=== PATIENT | male | born 1955 | race Hispanic/Latino ===

== ENCOUNTER 2017-04-28 08:11 | Emergency (ER) | payer MEDICARE ==
[2017-04-28 08:23] VITALS: BP 215/106
[2017-04-28] MEDS ORDERED: ASPIRIN ONE (10:57)
[2017-04-28] MEDS ORDERED: LOVENOX SUB-Q ONE (10:57)
[2017-04-28 11:12] LABS: Bilirubin,Urine NEG (Negative); Blood,Urine LG (Negative); Color,Urine Red (Yellow); Mucus,Urine 2+ /HPF; Nitrite,Urine NEG (Negative); Urobilinogen,Urine < 2.0 mg/dL (<2.0)
[2017-04-28 11:13] LABS: RBC,Urine > 182.0 /HPF (0.0-6.0); WBC,Urine > 182.0 /HPF (0.0-6.0)
== END 2017-04-28 10:30 | disposition left against medical advice (07) ==
LOC: ED 08:11
DX: R31.9 Hematuria, unspecified (principal); Z53.21 Procedure and treatment not carried out due to patient leaving prior to being seen by health care provider
CPT/HCPCS: 81001; J1650

== ENCOUNTER 2017-09-23 09:05 | Outpatient (CLI) | payer MEDICARE ==
[2017-09-23] MEDS ORDERED: LEXISCAN IV ONE ×2 (11:36→11:40)
[2017-09-23 14:27] VITALS: BP 174/80
== END 2017-09-23 09:06 | disposition home or self-care (01) ==
LOC: ECHO 09:05
PROVIDERS: ATTEND Specialist
DX: I25.10 Atherosclerotic heart disease of native coronary artery without angina pectoris (principal); E78.4 Other hyperlipidemia; I10 Essential (primary) hypertension; D64.9 Anemia, unspecified; F17.219 Nicotine dependence, cigarettes, with unspecified nicotine-induced disorders
CPT/HCPCS: 78452; 93005; 93010; 93017; 93306; A9502; J2785

== ENCOUNTER 2018-09-15 18:01 | Inpatient (IN) | payer MEDICARE ==
--- NOTE | 2018-09-15 18:37 | Event Note ---
ED Screening Note ED Screening Note: pt presents with upper abd pain that began at 7:30 AM this morning has associated nausea states it is sharp, throbbing no emesis no diarrhea no CP no hematemesis, no hematochezia PMHx of Hep C, erosive PUD, GBS, HTN +smoker +drinker no drug use This initial assessment/diagnostic orders/clinical plan/treatment(s) is/are subject to change based on patients health status, clinical progression and re- assessment by fellow clinical providers in the ED. Further treatment and workup at subsequent clinical providers discretion. Patient/guardian urged not to elope from the ED as their condition may be serious if not clinically assessed and managed. Initial orders include: labs, EKG, XR chest/abd
--- NOTE | 2018-09-15 19:28 | XRay Report ---
Chest and abdominal series. 09/15/2018. HISTORY: Shortness of breath. Flank pain. Chest one view: Heart size is normal. The lungs are clear. Two-view abdomen: Gas is scattered throughout the abdomen in a nonobstructive fashion. Negative for f ree air or suspicious calcification. Signer Name: Enzo Georges MD Signed: 09/15/2018 7:23 PM Workstation Name: [id number]
[2018-09-15 19:30] LABS: Basophils # (Auto) 0.1 K/mm3 (0.0-0.1); Basophils % (Auto) 0.3 % (0.0-1.8); Eosinophils # (Auto) 0.1 K/mm3 (0.0-0.4); Eosinophils % (Auto) 0.4 % (0.0-4.3); Hematocrit 32.6 % (35.5-45.6); Hemoglobin 9.9 gm/dl (11.8-15.2); Lymphocytes # (Auto) 0.8 K/mm3 (1.2-5.4); Lymphocytes % (Auto) 4.5 % (13.4-35.0); Mean Corpuscular HGB Conc 30 % (32-34); Monocytes # (Auto) 1.1 K/mm3 (0.0-0.8); Monocytes % (Auto) 6.4 % (0.0-7.3); Platelet Count 190 K/mm3 (140-440); Red Blood Count 5.06 M/mm3 (3.65-5.03)
[2018-09-15 19:35] LABS: Mean Corpuscular Volume 64 fl (84-94); Red Cell Distribution Width 21.4 % (13.2-15.2)
[2018-09-15 19:49] LABS: Bacteria,Urine 4+ /HPF (Negative); Bilirubin,Urine NEG (Negative); Blood,Urine NEG (Negative); Color,Urine Yellow (Yellow); Mucus,Urine 3+ /HPF; Protein,Urine <15 mg/dL mg/dL (Negative); Sperm,Urine 2+ /HPF (NP); Urobilinogen,Urine < 2.0 mg/dL (<2.0)
[2018-09-15] MEDS ORDERED: ZOFRAN IV ONE (19:51)
[2018-09-15] MEDS ORDERED: BENADRYL IV ONE ×2 (19:51→20:51)
[2018-09-15] MEDS ORDERED: NACL 0.9% 1000 ML 1,000 ML IV ONE (19:52)
[2018-09-15] MEDS ORDERED: DECADRON IV ONE (19:52)
[2018-09-15] MEDS ORDERED: MORPHINE IV ONE (19:53)
[2018-09-15 19:54] LABS: Alanine Aminotransferase 23 units/L (7-56); Albumin 4.3 g/dL (3.9-5); BUN/Creatinine Ratio 20; Blood Urea Nitrogen 14 mg/dL (9-20); Calcium 9.4 mg/dL (8.4-10.2); Hemolysis Index 2
[2018-09-15] MEDS ORDERED: ROCEPHIN/NS 1 GM/50 ML 1 GM/50 ML BAG IV ONE (21:03)
--- NOTE | 2018-09-15 22:41 | Cat Scan Report ---
CT abdomen pelvis w con INDICATION: abdominal pain. TECHNIQUE: All CT scans at this location are performed using CT dose reduction for ALARA by means of automated e xposure control. COMPARISON: None available. FINDINGS: No acute disease in the lung bases. Liver, gallbladder, spleen, pancreas, kidneys and adrenals are ne gative. Abdominal aorta is atherosclerotic but normal in size. There are a few small periportal node s but no significant adenopathy. Pelvis The appendix is abnormally distended and edematous, with slight surrounding inflammatory change. Tiny appendicolith is demonstrated in the mid appendix. Urinary bladder and distal ureters are negative. No free fluid. No skeletal lesions. IMPRESSION: 1. Findings suggest early/mild acute appendicitis. Signer Name: Beck Valdez MD Signed: 09/15/2018 10:37 PM Workstation Name: [id number]
[2018-09-15] MEDS ORDERED: ZOSYN/NS 3.375GM/50ML 3.375 GM/50 ML BAG IV ONE (23:13)
--- NOTE | 2018-09-15 23:17 | Emergency Department Report ---
ED Abdominal Pain HPI - General Chief Complaint: Abdominal Pain Stated Complaint: ABDOMINAL PAIN Time Seen by Provider: 09/15/18 18:34 Source: patient Mode of arrival: Ambulatory Limitations: No Limitations - History of Present Illness Initial Comments: Patient is a 62-year-old white male with a history of chronic back pain, hypertension, COPD, and Guillain-Soto syndrome who presents to the ED with complaint of acute onset persistent severe right lower quadrant abdominal pain with nausea for the last 12 hours. Patient states that the pain has worsened in the last 4 hours especially with movement. Patient states that the pain radiates to the right flank and the suprapubic area. Patient denies fever, chills, vomiting, diarrhea, constipation, dysuria, urinary frequency and urgency, testicular pain,hematuria or fever, chills, traumatic injury or heavy lifting. MD Complaint: abdominal pain, other (RLQ Pain) -: Sudden, hour(s) (12) Location: RLQ Radiation: RLQ, suprapubic, R flank Migration to: RLQ Severity: severe Severity scale (0 -10): 6 Quality: cramping, aching, sharp Consistency: constant Improves With: nothing Worsens With: movement Associated Symptoms: nausea. denies: vomiting, diarrhea, fever, chills, constipation, dysuria, hematemesis, hematochezia, melena, hematuria, anorexia, syncope - Related Data Home Medications Medication Instructions Recorded Confirmed Last Taken Pantoprazole [Protonix] 40 mg PO DAILY 11/10/13 01/14/17 01/13/17 Verapamil HCl 240 mg PO DAILY 11/10/13 01/14/17 01/14/17 06:30 Mesalamine [Pentasa] 1,000 mg PO TID 01/09/17 01/14/17 01/13/17 Allergies Allergy/AdvReac Type Severity Reaction Status Date / Time iodine AdvReac Rash Verified 08/03/13 08:45 tramadol AdvReac Rash Verified 08/03/13 08:45 ED Review of Systems ROS: Stated complaint: ABDOMINAL PAIN Other details as noted in HPI Constitutional: denies: chills, fever Eyes: denies: eye pain, eye discharge, vision change ENT: denies: ear pain, throat pain Respiratory: denies: cough, shortness of breath, wheezing Cardiovascular: denies: chest pain, palpitations Endocrine: no symptoms reported Gastrointestinal: abdominal pain, nausea. denies: diarrhea, constipation, melena, hematochezia Genitourinary: denies: urgency, dysuria Musculoskeletal: denies: back pain, joint swelling, arthralgia Skin: denies: rash, lesions Neurological: denies: headache, weakness, paresthesias Psychiatric: denies: anxiety, depression Hematological/Lymphatic: denies: easy bleeding, easy bruising ED Past Medical Hx - Past Medical History Previous Medical History?: Yes Hx Hypertension: Yes (2005) Hx Congestive Heart Failure: No Hx Diabetes: No Hx GERD: Yes Hx Liver Disease: Yes (h/o hepatitis C) Hx Renal Disease: No (BPH, urinary retention) Hx Arthritis: Yes Hx Asthma: No Hx COPD: Yes (NO [place]; used inhaler last week) Hx HIV: No Additional medical history: Hepatitis C; Guillian [place] Syndrome - Surgical History Past Surgical History?: Yes Additional Surgical History: Bleeding Ulcer 2011 - Social History Smoking Status: Current Every Day Smoker Substance Use Type: Alcohol - Medications Home Medications: Home Medications Medication Instructions Recorded Confirmed Last Taken Type Pantoprazole [Protonix] 40 mg PO DAILY 11/10/13 01/14/17 01/13/17 History Verapamil HCl 240 mg PO DAILY 11/10/13 01/14/17 01/14/17 06:30 History Mesalamine [Pentasa] 1,000 mg PO TID 01/09/17 01/14/17 01/13/17 History ED Physical Exam - General Limitations: No Limitations General appearance: alert, in no apparent distress - Head Head exam: Present: atraumatic, normocephalic, normal inspection - Eye Eye exam: Present: normal appearance, PERRL, EOMI Pupils: Present: normal accommodation - ENT ENT exam: Present: normal exam, normal orophraynx, mucous membranes moist, TM's normal bilaterally, normal external ear exam - Neck Neck exam: Present: normal inspection, full ROM. Absent: tenderness - Respiratory Respiratory exam: Present: normal lung sounds bilaterally. Absent: respiratory distress, wheezes, rales, rhonchi, chest wall tenderness, accessory muscle use, decreased breath sounds, prolonged expiratory - Cardiovascular Cardiovascular Exam: Present: regular rate, normal rhythm, normal heart sounds. Absent: systolic murmur, diastolic murmur, rubs, gallop - GI/Abdominal GI/Abdominal exam: Present: soft, tenderness (RLQ), guarding, rebound (RLQ), normal bowel sounds. Absent: distended, hyperactive bowel sounds, hypoactive bowel sounds, mass, bruit, pulsatile mass - Rectal Rectal exam: Present: deferred - Extremities Exam Extremities exam: Present: normal inspection, full ROM, normal capillary refill - Back Exam Back exam: Present: normal inspection, full ROM. Absent: tenderness, CVA tenderness (L), muscle spasm, vertebral tenderness - Neurological Exam Neurological exam: Present: alert, oriented X3, CN II-XII intact, reflexes normal - Psychiatric Psychiatric exam: Present: normal affect, normal mood - Skin Skin exam: Present: warm, dry, intact, normal color. Absent: rash ED Course Vital Signs 09/15/18 09/15/18 09/15/18 18:34 20:25 23:04 Temperature 98.2 F Pulse Rate 96 H 84 90 Respiratory 18 18 16 Rate Blood Pressure 187/80 Blood Pressure 200/89 178/84 [Left] O2 Sat by Pulse 98 96 95 Oximetry - Reevaluation(s) Reevaluation #1: 09/15/18 23:17 Patient is alert and oriented 3 and is not in any distress but then and is hypertensive in triage. Lab test results were reviewed and showed acute leukocytoses of 16,800, and urinalysis also showed the acute urinary tract infection. The patient was treated for pain in the ED as well as nausea. Patient also received Rocephin 1 g IV for acute urinary tract infection. A bdomen and pelvis CT scan with contrast shows an abnormally distended and edematous appendix with slight surrounding inflammatory change. There is also a tiny appendicolith in the mid appendix. There are narrowed bladder and distal ureters are unremarkable with no free fluid. These findings are suggestive of early to mild acute appendicitis. I discussed these findings with the general surgeon supervisor steel division Dr. Funez, who also reviewed the imaging department and lab test results and advised that the patient was started on antibiotics and admitted to the hospitalist physician supervisor steel division admit the patient and Dr. Funez shall schedule the patient for surgery in the morning. He also advises that the patient be kept nothing by mouth. I paged and discussed the patient's findings and the plan of care with the hospitalist physician supervisor steel division Dr. Mancera who admitted the patient to the Hospital 09/15/18 23:31 ED Medical Decision Making - Lab Data Result diagrams: 09/15/18 19:15 09/15/18 19:15 - EKG Data EKG shows normal: sinus rhythm Rate: normal - EKG Data Interpretation: normal EKG - Radiology Data Radiology results: report reviewed, image reviewed [facility] [address] [place] [address] Cat Scan Report Signed Patient: JIMMIE FARRIS MR#: [id number] : 1955 Acct:[id number] Age/Sex: 62 / M ADM Date: 09/15/18 Loc: ED Attending Dr: Ordering Physician: DIVINA JIMENEZ Date of Service: 09/15/18 Procedure(s): CT abdomen pelvis w con Accession Number(s): [id number] cc: DIVINA JIMENEZ CT abdomen pelvis w con INDICATION: abdominal pain. TECHNIQUE: All CT scans at this location are performed using CT dose reduction for ALARA by means of automated exposure control. COMPARISON: None available. FINDINGS: No acute disease in the lung bases. Liver, gallbladder, spleen, pancreas, kidneys and adrenals are negative. Abdominal aorta is atherosclerotic but normal in size. There are a few small periportal nodes but no significant adenopathy. Pelvis The appendix is abnormally distended and edematous, with slight surrounding inflammatory change. Tiny appendicolith is demonstrated in the mid appendix. Urinary bladder and distal ureters are negative. No free fluid. No skeletal lesions. IMPRESSION: 1. Findings suggest early/mild acute appendicitis. Signer Name: Beck Valdez MD Signed: 09/15/2018 10:37 PM Workstation Name: [id number] Transcribed By: TM Dictated By: Beck Valdez MD Electronically Authenticated By: Beck Valdez MD Signed Date/Time: 09/15/18 2236 - Medical Decision Making Patient is alert and oriented 3 and is not in any distress but then and is hypertensive in triage. Lab test results were reviewed and showed acute leukocytoses of 16,800, and urinalysis also showed the acute urinary tract infection. The patient was treated for pain in the ED as well as nausea. Patient also received Rocephin 1 g IV for acute urinary tract infection. Abdomen and pelvis CT scan with contrast shows an abnormally distended and edematous appendix with slight surrounding inflammatory change. There is also a tiny appendicolith in the mid appendix. There are narrowed bladder and distal ureters are unremarkable with no free fluid. These findings are suggestive of early to mild acute appendicitis. I discussed these findings with the general surgeon supervisor steel division Dr. Funez, who also reviewed the imaging department and lab test results and advised that the patient was started on antibiotics and admitted to the hospitalist physician supervisor steel division admit the patient and Dr. Funez shall schedule the patient for surgery in the morning. He also advises that the patient be kept nothing by mouth. I paged and discussed the patient's findings and the plan of care with the hospitalist physician supervisor steel division Dr. Mancera who admitted the patient to the Hospital - Differential Diagnosis acuet appendicitis, acute UTI, Kidney stones, Gallstones; Pancreatitis Critical care attestation.: If time is entered above; I have spent that time in minutes in the direct care of this critically ill patient, excluding procedure time. ED Disposition Clinical Impression: Acute abdominal pain in right lower quadrant, Acute urinary tract infection Acute appendicitis Qualifiers: Acute appendicitis type: unspecified acute appendicitis type Qualified Code(s): K35.80 - Unspecified acute appendicitis Disposition: -09 OP ADMIT IP TO THIS HOSP Is pt being admited?: Yes Does the pt Need Aspirin: No Condition: Stable Instructions: Abdominal Pain (ED) Referrals: JONATAN TEJEDA MD [Primary Care Provider] - 3-5 Days Time of Disposition: 23:22 Print Language: UPPER SORBIAN
[2018-09-16] MEDS ORDERED: ZOFRAN IV PRN ×2 (00:58→11:36)
[2018-09-16] MEDS ORDERED: MORPHINE IV PRN (00:59)
[2018-09-16] MEDS ORDERED: NACL 0.9% 1000 ML 1,000 ML IV SCH (01:00)
[2018-09-16] MEDS ORDERED: TYLENOL PR PRN (01:04)
[2018-09-16] MEDS: APRESOLINE IV PRN ×2 (03:21→09:47)
--- NOTE | 2018-09-16 05:00 | History and Physical Report ---
CHIEF COMPLAINT: Abdominal pain. HISTORY OF PRESENT ILLNESS: The patient is a 62-year-old male who presented with right lower quadrant abdominal pain, going on for some 12-24 hours prior to presentation and associated with nausea but no vomiting. The patient's pain became progressively worse 4 hours prior to presentation. The patient said that the pain was worse with movement and pain radiates to the right flank area as well as the suprapubic area on the right side. There was a history of chills, but no history of fever and there was no history of diarrhea or urinary frequency or burning micturition. The patient also denied history of any testicular pain or hematuria, and denied history of trauma. PAST MEDICAL HISTORY: Pertinent for hypertension, gastroesophageal reflux disease, hepatitis C infection, arthritis, COPD and Guillain-Sayre syndrome. PAST SURGICAL HISTORY: Pertinent for bleeding ulcers in 2011. FAMILY HISTORY: Reviewed and noncontributory. SOCIAL HISTORY: The patient drinks alcohol, smokes cigarettes, and does not use illicit drugs. MEDICATIONS: The patient is on pantoprazole or Protonix 40 mg by mouth daily, verapamil 240 mg by mouth daily, mesalamine 1000 mg by mouth 3 times daily. ALLERGIES: THE PATIENT IS ALLERGIC TO IODINE AND TRAMADOL. REVIEW OF SYSTEMS: CONSTITUTIONAL: There is no fever, no chills, no diaphoresis. HEENT: There is no headache or sore throat. CARDIOVASCULAR SYSTEM: There is no chest pain or orthopnea. RESPIRATORY SYSTEM: There is no shortness of breath or cough. GASTROINTESTINAL SYSTEM: Right lower quadrant abdominal pain present. Nausea present. No vomiting, no diarrhea, no constipation. NEUROLOGICAL SYSTEM: There is no numbness, no dizziness, no altered mental status. MUSCULOSKELETAL SYSTEM: There is no joint pain or swelling. DERMATOLOGICAL SYSTEM: There is no skin rash or itching. GENITOURINARY SYSTEM: There is no dysuria, hematuria, or flank pain. Rest of system review is normal. PHYSICAL EXAMINATION: GENERAL: At the time of exam, the patient was found to be alert and oriented x 3 and in mild distress due to right lower quadrant abdominal pain. VITAL SIGNS: At the initial time of presentation showed temperature of 98.2 degrees Fahrenheit, pulse of 96, respirations 18, blood pressure 187/80, O2 sat of 98% on room air. HEENT: Showed pupils to be equal, round, reactive to light and accommodating. Extraocular muscles are intact. NECK: Supple with no JVD or carotid bruit. CARDIOVASCULAR SYSTEM: Shows normal first and second heart sounds with no gallops or murmurs. RESPIRATORY SYSTEM: Showed good air entry on both sides of the lungs with no abnormal breath sounds. GASTROINTESTINAL SYSTEM: Showed abdomen to be full, soft with tenderness in the right lower quadrant area. There is also rebound tenderness, but no rigidity and no guarding was elicited. Bowel sounds are normal. No organomegaly was elicited. NEUROLOGIC: Showed no focal deficits. MUSCULOSKELETAL SYSTEM: Showed no joint swelling or tenderness. DERMATOLOGICAL SYSTEM: Showed no skin rash. GENITOURINARY SYSTEM: Showed no costovertebral angle tenderness. PERTINENT LABORATORY AND IMAGING STUDIES: The patient had a CT of the abdomen and pelvis done which shows early/mild acute appendicitis. The patient also had acute abdominal series done, which shows no free air or suspicious calcification or obstruction. The patient's lab results: CBC shows elevated white count of 16,800 with low hemoglobin of 9.9 and low hematocrit level of 32.6 with low MCV of 64 and normal platelet count. CBC differential showed elevated segmented neutrophil count of 88.4% with chemistries showing low sodium level of 136. The patient's cardiac enzymes were unremarkable. Urinalysis shows elevated urine wbc of 10 with trace urine leukocyte esterase and negative urine nitrites with 4+ bacteria. DIAGNOSES: 1. Acute appendicitis. 2. Urinary tract infection. 3. Hypertension. 4. Anemia. PLAN OF CARE: 1. The patient will be admitted to medical/surgical qureshi. 2. The patient will remain n.p.o. until seen by the surgeon. 3. The patient will continue surgical consult with Dr. Funez, requested by the Emergency Room physician. 4. The patient will be on IV Zosyn 4.5 grams IV q.8 hours. 5. The patient will be on IV morphine 2 mg every 3 hours as needed for pain and IV Zofran 4 mg every 8 hours for nausea and vomiting. 6. The patient will be on IV Protonix 40 mg daily for ulcer prevention since the patient has bleeding peptic ulcer. 7. The patient will be on Tylenol 650 mg rectally every 4 hours for fever and headache and will be on IV normal saline running at 75 mL an hour. 8. The patient will be on IV hydralazine 10 mg every 4 hours as needed for blood pressure of 160/90 or more. [facility]# [id number] OCN/NTS MTDD
[2018-09-16] MEDS ORDERED: ZOSYN/NS 3.375GM/50ML 3.375 GM/50 ML BAG IV SCH (06:00)
[2018-09-16] MEDS ORDERED: ZOSYN/NS 4.5GM/100ML 4.5 GM/100 ML VIAL IV SCH (06:00)
--- NOTE | 2018-09-16 08:39 | Consultation ---
History of Present Illness Consult date: 09/16/18 Reason for consult: abdominal pain Requesting physician: CARLITOS CORRALES Chief complaint: RLQ pain - History of present illness History of present illness: 62yo M multiple medical problems presented to the emergency department after developing sudden onset of abdominal pain at 7:30 yesterday morning. He was driving home from [place] at the time. Reports progressively increasing pain. Had sweats. No fevers or chills. Positive nausea. No vomiting. Patient is hungry. Has never had any pain like this before. Maximal pain is in the right lower quadrant. CT scan is suggestive of appendicitis. General surgery was consult for this reason. Past History Past Medical History: CAD, COPD, hepatitis (C - pt reports it is cured), hypertension, other (h/o guillain-barre syndrome - still has residual pain in lower extremities; h/o PUD). denies: acute [place], heart failure, stroke Past Surgical History: denies: No surgical history Social history: , smoking (1/2-1ppd), alcohol abuse (4 drinks/day - no withdrawal sx's) Family history: no significant family history Medications and Allergies Allergies Allergy/AdvReac Type Severity Reaction Status Date / Time iodine AdvReac Rash Verified 08/03/13 08:45 tramadol AdvReac Rash Verified 08/03/13 08:45 Home Medications Medication Instructions Recorded Confirmed Last Taken Type Pantoprazole [Protonix] 40 mg PO DAILY 11/10/13 01/14/17 01/13/17 History Verapamil HCl 240 mg PO DAILY 11/10/13 01/14/17 01/14/17 06:30 History Mesalamine [Pentasa] 1,000 mg PO TID 01/09/17 01/14/17 01/13/17 History Active Meds: Active Medications Acetaminophen (Tylenol) 650 mg NC Q4H PRN PRN Reason: Pain, Mild (1-3) Hydralazine HCl (Apresoline) 10 mg IV Q4HR PRN PRN Reason: Blood Pressure Last Admin: 09/16/18 03:21 Dose: 10 mg Documented by: Sodium Chloride (Nacl 0.9% 1000 Ml) 1,000 mls @ 75 mls/hr IV DIRECT ZACH Last Admin: 09/16/18 03:21 Dose: 75 mls/hr Documented by: Piperacillin Sod/Tazobactam Sod (Zosyn/Ns 4.5gm/100ml) 4.5 gm in 100 mls @ 200 mls/hr IV Q8HR [facility]; Protocol Last Admin: 09/16/18 06:46 Dose: 200 mls/hr Documented by: Miscellaneous Medication (Mesalamine [Pentasa]) 1,000 mg PO TID [facility] Morphine Sulfate (Morphine) 2 mg IV Q3H PRN PRN Reason: Pain, Moderate (4-6) Ondansetron HCl (Zofran) 4 mg IV Q8H PRN PRN Reason: Nausea And Vomiting Pantoprazole Sodium (Protonix) 40 mg IV DAILY [facility] Pantoprazole Sodium (Protonix) 40 mg PO DAILY [facility] Verapamil HCl (Calan) 240 mg PO DAILY [facility] Review of Systems - Constitutional sweats, chronic pain (in lower extremities), no fever, no chills - Cardiovascular no chest pain, no shortness of breath - Respiratory no cough - Gastrointestinal abdominal pain, nausea, no vomiting, no change in bowel habits, no loss of appetite, no dyspepsia/bloating - Genitourinary no dysuria - Muskuloskeletal shooting leg pain, leg numbness/tingling, no low back pain Exam Vital Signs Temp Pulse Resp BP Pulse Ox 98.2 F 96 H 18 187/80 98 09/15/18 18:34 09/15/18 18:34 09/15/18 18:34 09/15/18 18:34 09/15/18 18:34 - General physical appearance Positive: no distress, no pain, other (overweight) - Eyes Positive: normal occular movement - Respiratory Positive: normal expansion, normal respiratory effort, clear to auscultation - Cardiovascular Rhythm: regular - Abdomen Abdomen: Present: soft, tender (in RLQ. small amount in LLQ. No referred pain. No pelvic shake tenderness), bowel sounds hypoactive. Absent: masses, guarding, rigid, wound, surgical scars - Integumentary no rash, no growths, no abnormal pigmentation - Neurologic Neurologic: alert and oriented to time, place and person - Psychiatric Psychiatric: appropriate mood/affect, intact judgment & insight, cooperative Results - Labs 09/15/18 19:15 09/15/18 19:15 Abnormal lab results 09/15/18 09/15/18 09/15/18 Range/Units 18:52 19:15 19:15 WBC 16.8 H (4.5-11.0) K/mm3 RBC 5.06 H (3.65-5.03) M/mm3 Hgb 9.9 L (11.8-15.2) gm/dl Hct 32.6 L (35.5-45.6) % MCV 64 L (84-94) fl MCH 20 L (28-32) pg MCHC 30 L (32-34) % RDW 21.4 H (13.2-15.2) % Lymph % (Auto) 4.5 L (13.4-35.0) % Lymph # 0.8 L (1.2-5.4) K/mm3 Cocke # 1.1 H (0.0-0.8) K/mm3 Seg Neutrophils % 88.4 H (40.0-70.0) % Seg Neutrophils # 14.9 H (1.8-7.7) K/mm3 Sodium 136 L (137-145) mmol/L Creatinine 0.7 L (0.8-1.5) mg/dL Glucose 122 H (75-100) mg/dL Urine WBC (Auto) 10.0 H (0.0-6.0) /HPF Diabetes panel 09/15/18 Range/Units 19:15 Sodium 136 L (137-145) mmol/L Potassium 4.5 (3.6-5.0) mmol/L Chloride 100.0 (98-107) mmol/L Carbon Dioxide 23 (22-30) mmol/L BUN 14 (9-20) mg/dL Creatinine 0.7 L (0.8-1.5) mg/dL Glucose 122 H (75-100) mg/dL Calcium 9.4 (8.4-10.2) mg/dL AST 20 (5-40) units/L ALT 23 (7-56) units/L Alkaline Phosphatase 76 (35-129) units/L Total Protein 7.6 (6.3-8.2) g/dL Albumin 4.3 (3.9-5) g/dL Calcium panel 09/15/18 Range/Units 19:15 Calcium 9.4 (8.4-10.2) mg/dL Albumin 4.3 (3.9-5) g/dL Pituitary panel 09/15/18 Range/Units 19:15 Sodium 136 L (137-145) mmol/L Potassium 4.5 (3.6-5.0) mmol/L Chloride 100.0 (98-107) mmol/L Carbon Dioxide 23 (22-30) mmol/L BUN 14 (9-20) mg/dL Creatinine 0.7 L (0.8-1.5) mg/dL Glucose 122 H (75-100) mg/dL Calcium 9.4 (8.4-10.2) mg/dL Adrenal panel 09/15/18 Range/Units 19:15 Sodium 136 L (137-145) mmol/L Potassium 4.5 (3.6-5.0) mmol/L Chloride 100.0 (98-107) mmol/L Carbon Dioxide 23 (22-30) mmol/L BUN 14 (9-20) mg/dL Creatinine 0.7 L (0.8-1.5) mg/dL Glucose 122 H (75-100) mg/dL Calcium 9.4 (8.4-10.2) mg/dL Total Bilirubin 0.70 (0.1-1.2) mg/dL AST 20 (5-40) units/L ALT 23 (7-56) units/L Alkaline Phosphatase 76 (35-129) units/L Total Protein 7.6 (6.3-8.2) g/dL Albumin 4.3 (3.9-5) g/dL - Imaging CT scan - abdomen: report reviewed, image reviewed CT scan - pelvis: report reviewed, image reviewed Assessment and Plan - Patient Problems (1) Acute appendicitis Current Visit: Yes Status: Acute Qualifiers: Acute appendicitis type: with localized peritonitis Qualified Code(s): K35.80 - Unspecified acute appendicitis Plan to address problem: Pt stable. Patient assessed to have appendicitis based on history, physical, radiographic evaluation. Options given for surgery versus medical therapy. Pros and cons discussed for each one. Patient elected to have surgery. Procedure, risks, benefits were discussed. All questions were answered. Consent was obtained. Either myself or Dr. Kan will perform surgery. Consent is been obtained for both. We will proceed to OR today. Patient is currently on the add-on schedule Please call with questions Time=30min
[2018-09-16] MEDS ORDERED: PROTONIX PO SCH (10:00)
[2018-09-16] MEDS: PROTONIX IV SCH ×2 (10:50→11:55)
[2018-09-16] MEDS ORDERED: MARCAINE 0.5% INFILTRATI ONE ×2 (11:24→12:37)
[2018-09-16] MEDS ORDERED: XYLOCAINE 1% 20 mL ONE (11:24)
--- NOTE | 2018-09-16 11:33 | Anesthesia Consultation ---
Anesthesia Consult and Med Hx Date of service: 09/16/18 - Airway Anesthetic Teeth Evaluation: Edentulous ROM Head & Neck: Adequate Mental/Hyoid Distance: Adequate Mallampati Class: Class II Intubation Access Assessment: Probably Good - Pre-Operative Health Status ASA Pre-Surgery Classification: ASA3, Emergency Proposed Anesthetic Plan: General - Pulmonary Hx Smoking: Yes (current) Hx Asthma: No COPD: Yes Hx Pneumonia: No Hx Sleep Apnea: No (high score for MANDY) - Cardiovascular System Hx Hypertension: Yes Hx Coronary Artery Disease: Yes (Mild blockage; NST this year) Hx Heart Attack/AMI: No Hx Angina: No Hx Percutaneous Transluminal Coronary Angioplasty (PTCA): No Hx Pacemaker: No Hx Internal Defibrillator: No Hx Valvular Heart Disease: No Hx Peripheral Vascular Disease: No - Central Nervous System Hx Neuromuscular Disorder: Yes (arthritis - uses a walker) Hx Seizures: No CVA: No Hx Back Pain: Yes Hx Psychiatric Problems: No - Gastrointestinal Hx Ulcer: Yes (peptic ulcer) Hx Gastroesophageal Reflux Disease: Yes (controlled) - Endocrine Hx Renal Disease: No Hx End Stage Renal Disease: No Hx Cirrhosis: No Hx Liver Disease: Yes (HEP C in the past) Hx Hyperthyroidism: No - Hematic Hx Anemia: Yes - Other Systems Hx Alcohol Use: Yes Hx Cancer: No - Additional Comments 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
--- NOTE | 2018-09-16 11:34 | Anesthesia Day of Surgery ---
Anesthesia Day of Surgery - Day of Surgery Patient Examined: Yes Patient H&P Reviewed: Yes Patient is NPO: Yes
[2018-09-16] MEDS ORDERED: SUBLIMAZE IV PRN (11:36)
[2018-09-16] MEDS ORDERED: LACTATED RINGERS 1,000 ML IV SCH (11:50)
[2018-09-16] MEDS ORDERED: LACTATED RINGERS 1,000 ML ONE (11:53)
[2018-09-16] MEDS ORDERED: CALAN PO SCH (12:00)
[2018-09-16] MEDS ORDERED: DIPRIVAN 10 MG/ML IV ONE (12:02)
[2018-09-16] MEDS ORDERED: DILAUDID ONE (12:02)
[2018-09-16] MEDS ORDERED: QUELICIN ONE (12:03)
[2018-09-16] MEDS ORDERED: XYLOCAINE MPF 2% ONE (12:03)
[2018-09-16] MEDS ORDERED: ZEMURON IV ONE (12:03)
[2018-09-16] MEDS ORDERED: XYLOCAINE 1% 20 mL INFILTRATI ONE (12:37)
[2018-09-16] MEDS ORDERED: NACL 0.9% IR ONE (12:37)
[2018-09-16] MEDS ORDERED: NORCO 5/325 PO PRN (13:04)
--- NOTE | 2018-09-16 13:04 | Post Operative Note ---
Date of procedure: 09/16/18 Pre-op diagnosis: acute appendicitis Post-op diagnosis: same Findings: inflamed appendix Procedure: laparoscopic appendectomy Anesthesia: JOSÉ LUISA, local Surgeon: REJI SHERMAN Estimated blood loss: minimal Pathology: list (appendix) Specimen disposition: to lab Condition: stable Disposition: PACU
[2018-09-16] MEDS ORDERED: ROBINUL ONE (13:05)
[2018-09-16] MEDS ORDERED: BLOXIVERZ ONE (13:05)
[2018-09-16] MEDS ORDERED: ZOFRAN ONE (13:07)
[2018-09-16] MEDS ORDERED: TORADOL ONE (13:08)
[2018-09-16] MEDS ORDERED: PENTASA PO SCH (14:00)
[2018-09-16] MEDS ORDERED: MESALAMINE 1000 MG PO SCH (14:00)
--- NOTE | 2018-09-16 15:06 | Discharge Summary ---
Providers - Providers Date of Admission: 09/16/18 00:53 Attending physician: MICHELINE PARK MD 09/15/18 23:35 Consult to Physician [CONS] Routine Comment: GLOBAL SALES DIRECTOR/PA spoke with Dr. Funez @ [phone] Consulting Provider: AKIRA FUNEZ Physician Instructions: Admit to Hospitalist, keep NPO, STAT ABX IV Reason For Exam: acuet appendicitis Primary care physician: JONATAN TEJEDA Hospitalization Reason for admission: abodominal pain Condition: Stable Hospital course: 62 yo M multiple medical problems presented to the emergency department after d eveloping sudden onset of abdominal pain at 7:30 yesterday morning. He was driving home from [place] at the time. Reports progressively increasing pain. Had sweats. No fevers or chills. Positive nausea. No vomiting. Patient is hungry. Has never had any pain like this before. Maximal pain is in the right lower quadrant. CT scan is suggestive of appendicitis. Patient was noted to have acute leukocytoses of 16,800, and urinalysis also showed the acute urinary tract infection. The patient was treated for pain in the ED as well as nausea. Patient also received Rocephin 1 g IV for acute urinary tract infection. Abdomen and pelvis CT scan with contrast shows an abnormally distended and edematous appendix with slight surrounding inflammatory change. There is also a tiny appendicolith in the mid appendix. There are narrowed bladder and distal ureters are unremarkable with no free fluid. These findings are suggestive of early to mild acute appendicitis. Diagnosis 1. Acute Appendicitis 2. SIRS with organ dysfunction 3. Hepatitis C 4. HTN 5. Acute Cystitis 6. Stable Heart Failure presumed Systolic 7. Alcohol Use Disorder 8. COPD 9. ANEMIA Disposition: DC-01 TO HOME OR SELFCARE Time spent for discharge: 35 mins Core Measure Documentation - Palliative Care Palliative Care/ Comfort Measures: Not Applicable - Core Measures Any of the following diagnoses?: none Exam - Constitutional Vitals: Temp Pulse Resp BP Pulse Ox 97.6 F 76 16 123/55 97 09/16/18 13:45 09/16/18 13:45 09/16/18 13:45 09/16/18 13:45 09/16/18 13:45 General appearance: Present: no acute distress - EENT Eyes: Present: PERRL ENT: hearing intact, clear oral mucosa - Neck Neck: Present: supple, normal ROM - Respiratory Respiratory effort: normal Respiratory: bilateral: CTA - Cardiovascular Rhythm: regular Heart Sounds: Present: S1 & S2. Absent: systolic murmur - Extremities Extremities: no ischemia, pulses intact, pulses symmetrical, No edema, normal temperature, normal color, Full ROM Peripheral Pulses: within normal limits - Abdominal General gastrointestinal: Present: soft, non-tender, non-distended, normal bowel sounds - Integumentary Integumentary: Present: clear, warm, dry - Musculoskeletal Musculoskeletal: strength equal bilaterally - Psychiatric Psychiatric: appropriate mood/affect, intact judgment & insight, cooperative - Neurologic Neurologic: CNII-XII intact, moves all extremities - Allied Health Allied health notes reviewed: nursing Plan Activity: advance as tolerated, fall precautions Diet: low fat Special Instructions: record daily weights, record daily BP diary Follow up with: JONATAN TEJEDA MD [Primary Care Provider] - 3-5 Days REJI SHERMAN DO [Staff Physician] - 7 Days Prescriptions: HYDROcodone/APAP 5-325 [[place] 5-325 mg TAB] 1 each PO Q6H PRN #12 tablet PRN Reason: Pain, Moderate (4-6)
[2018-09-16 15:35] VITALS: BP 127/56
--- NOTE | 2018-09-17 20:21 | Operative Report ---
PREOPERATIVE DIAGNOSIS: Acute appendicitis. POSTOPERATIVE DIAGNOSIS: Acute appendicitis. FINDINGS: Inflamed appendix. PROCEDURE: Laparoscopic appendectomy. ANESTHESIA: General endotracheal anesthesia, local. SURGEON: Lou Kan DO ESTIMATED BLOOD LOSS: Minimal. PATHOLOGY: Appendix DISPOSITION: To lab. CONDITION AND DISPOSITION: The patient is stable to PACU. HISTORY OF PRESENT ILLNESS AND INDICATION: The patient is a 62-year-old male who presented to the hospital with complaints of abdominal pain. He was found to have an elevated white blood cell count and acute appendicitis on CT scan. This was consistent with his physical exam findings of right lower quadrant pain. Appendectomy was recommended. All risks, benefits and alternatives to surgery were discussed with the patient. All questions answered. Consent was obtained. PROCEDURE IN DETAIL: The patient was identified in the preoperative area, taken back to the operating room and placed on the operating table in supine position. After anesthesia was induced, the left arm was tucked and all bony prominences padded. A Bateman catheter was then sterilely placed by the circulating nurse. The abdomen was then prepped and draped in the usual sterile fashion. Timeout was performed. A local anesthetic was infiltrated into all skin incision sites. A 5 mm incision was made above the umbilicus through which a Veress needle was inserted. The Veress needle positioning was confirmed using the saline drop test and the abdomen insufflated to 15 mmHg. Once the abdomen was insufflated, the Veress needle was removed and a 5 mm Optiview trocar was placed through this incision. The abdomen was inspected. There was no underlying injury to any of the abdominal structures. The patient was placed in Trendelenburg and tilted to the left. An additional left lower quadrant 12 mm port and a 5 mm suprapubic port were placed under direct visualization. The cecum was identified and retracted medially. The appendix was immediately identified. The appendix appeared thickened and inflamed as well as its mesentery. The appendix was grasped and retracted medially and cephalad. The mesentery was ligated with the Harmonic scalpel and dissection carried down to the base of the appendix. Once the mesentery was ligated, the appendix was transected at its base using an [place] Flex 45 mm white load stapler. This was placed into an EndoCatch bag and removed via the 12 mm port. The staple line and ligated mesoappendix were then inspected. There was no bleeding or leakage from the area. Hemostasis was carefully ensured. The patient was then placed in the neutral position and the 12 mm port removed. The 12 mm port fascia was closed with interrupted 0 Vicryl sutures using Seth-Diallo device. The skin incision once again infiltrated with local anesthetic after the remaining ports were removed under direct visualization. The skin incision was closed with 4-0 Monocryl subcuticular stich and skin glue. At the end of the case, all sponge, instrument, sharp counts were correct x 2. The Bateman catheter was removed and the patient was awoken from anesthesia, extubated, and taken to PACU in stable condition. JOB# [id number] ANT/SERJOI FABIAN
== END 2018-09-16 17:35 | disposition home or self-care (01) | DRG 342 ==
LOC: ED 18:01 → 3B-SURG 09-16 00:53
PROVIDERS: ADMIT Internal Medicine; ATTEND Internal Medicine
PROC: 0DTJ4ZZ Resection of Appendix, Percutaneous Endoscopic Approach (ICD-10-PCS; principal; 2018-09-16)
DX: K35.30 Acute appendicitis with localized peritonitis, without perforation or gangrene (principal); N39.0 Urinary tract infection, site not specified; G61.0 Guillain-Barre syndrome; R65.10 Systemic inflammatory response syndrome (SIRS) of non-infectious origin without acute organ dysfunction; J44.9 Chronic obstructive pulmonary disease, unspecified; I10 Essential (primary) hypertension; I25.10 Atherosclerotic heart disease of native coronary artery without angina pectoris; M19.90 Unspecified osteoarthritis, unspecified site; K21.9 Gastro-esophageal reflux disease without esophagitis; F17.210 Nicotine dependence, cigarettes, uncomplicated; D64.9 Anemia, unspecified; B19.20 Unspecified viral hepatitis C without hepatic coma; Z72.89 Other problems related to lifestyle; Z88.5 Allergy status to narcotic agent; Z87.11 Personal history of peptic ulcer disease; Z91.041 Radiographic dye allergy status
CPT/HCPCS: 36415; 74022; 74177; 80053; 81001; 83690; 84484; 85025; 87086; 88304; 93005; 93010; G0378; C9113; J0330; J0360; J0696; J1100; J1170; J1200; J1885; J2270; J2405; J2543; J2704; J2710; J7030; J7120; Q9967

== ENCOUNTER 2020-08-24 10:07 | Emergency (ER) | payer MEDICARE ==
[2020-08-24 10:50] VITALS: BP 219/100
--- NOTE | 2020-08-24 11:17 | Event Note ---
ED Screening Note ED Screening Note: [facility] 2011 SP FLU SHOT HTN GERD RX VERAPAMIL PPI PT CALLED HIS ONCOLOGY MD WITH CO L FLANK PAIN-- pain is not in chest ACUTE ONSET 3 P MD SENT HIM HERE TO RO [place] STONE bp elevated - taking verapamil NO SOB NO SOB NO DYSURIA NO FEVER/CHILLS NO COVID SHOT This initial assessment/diagnostic orders/clinical plan/treatment(s) is/are subject to change based on patients health status, clinical progression and re- assessment by fellow clinical providers in the ED. Further treatment and workup at subsequent clinical providers discretion. Patient/guardian urged not to elope from the ED as their condition may be serious if not clinically assessed and managed. Initial orders include: RO K STONE HTN NOTED
[2020-08-24] MEDS ORDERED: KETOROLAC 30 MG/1 ML INJ IM ONE (12:17)
[2020-08-24] MEDS ORDERED: ACETAMINOPHEN 500 MG TAB PO ONE (12:17)
--- NOTE | 2020-08-24 12:26 | Emergency Department Report ---
ED Back Pain/Injury HPI - General Chief Complaint: Back Pain/Injury Stated Complaint: BACK PAIN Time Seen by Provider: 08/24/20 11:09 Source: patient Limitations: No Limitations - History of Present Illness Initial Comments: Chief complaint: Back pain HPI: This is a 64-year-old male with history of hypertension, Guillain-Soto, peptic ulcer disease, GERD who presents with left flank pain for the past 5 days. He woke up one morning with the pain. No recent heavy lifting. No trauma. No previous history of kidney stone. He has a throbbing spasmodic sensation at the left flank just adjacent to the spine. Pain does not change with movement. 7 out of 10 in severity. No radiation. No hematuria no fever. No vomiting. He denies bowel or urine incontinence. 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 Tramadol did not relieve back pain. He has been compliant with verapamil for hypertension. He only sees an oncologist for primary care. He does not have a primary physician. 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 MD Complaint: back pain -: Gradual, days(s) (5 days ago) Similar Symptoms Previously: No Place: home Severity: moderate Severity scale (0 -10): 7 Quality: other (throbbing) Consistency: intermittent Improves With: none Worsens With: none Associated Symptoms: denies other symptoms - Related Data Home Medications Medication Instructions Recorded Confirmed Last Taken Pantoprazole [Protonix TAB] 40 mg PO DAILY 11/10/13 09/16/18 09/15/18 10:00 Verapamil HCl 240 mg PO DAILY 11/10/13 09/16/18 09/15/18 10:00 Mesalamine [Pentasa] 1,000 mg PO TID 01/09/17 09/16/18 09/14/18 22:00 Previous Rx's Medication Instructions Recorded Last Taken Type HYDROcodone/APAP 5-325 [Guffey 1 each PO Q6H PRN #12 tablet 09/16/18 Unknown Rx 5-325 mg TAB] Cyclobenzaprine [Flexeril] 10 mg PO TID PRN #20 tablet 08/24/20 Unknown Rx HYDROcodone/APAP 5-325 [Guffey 1 each PO Q6HR PRN #15 tablet 08/24/20 Unknown Rx 5/325] Ibuprofen [Motrin 400 MG tab] 400 mg PO TID 5 Days #15 tablet 08/24/20 Unknown Rx Allergies Allergy/AdvReac Type Severity Reaction Status Date / Time iodine AdvReac Rash Verified 08/03/13 08:45 ED Review of Systems ROS: Stated complaint: BACK PAIN Other details as noted in HPI Comment: All other systems reviewed and negative Constitutional: denies: fever Respiratory: denies: cough, shortness of breath Cardiovascular: denies: chest pain Gastrointestinal: denies: abdominal pain, nausea, vomiting Genitourinary: denies: hematuria Musculoskeletal: back pain ED Past Medical Hx - Past Medical History Previous Medical History?: Yes Hx Hypertension: Yes Hx Heart Attack/AMI: No Hx Congestive Heart Failure: No Hx Diabetes: No Hx Deep Vein Thrombosis: No Hx Pulmonary Embolism: No Hx GERD: Yes Hx Liver Disease: Yes (HEP C in the past) Hx Renal Disease: No Hx Arthritis: Yes Hx Seizures: No Hx Kidney Stones: No Hx Asthma: No Hx COPD: Yes Hx Tuberculosis: No Hx Dementia: No Hx HIV: No Additional medical history: Hepatitis C; Guillian [place] Syndrome - Surgical History Past Surgical History?: Yes Hx Coronary Stent: No Hx Open Heart Surgery: No Hx Pacemaker: No Hx Internal Defibrillator: No Hx Appendectomy: No Hx Breast Surgery: No Additional Surgical History: Bleeding Ulcer 2011 - Social History Smoking Status: Current Some Day Smoker Substance Use Type: None - Medications Home Medications: Home Medications Medication Instructions Recorded Confirmed Last Taken Type Pantoprazole [Protonix TAB] 40 mg PO DAILY 11/10/13 09/16/18 09/15/18 10:00 History Verapamil HCl 240 mg PO DAILY 11/10/13 09/16/18 09/15/18 10:00 History Mesalamine [Pentasa] 1,000 mg PO TID 01/09/17 09/16/18 09/14/18 22:00 History HYDROcodone/APAP 5-325 [Guffey 1 each PO Q6H PRN #12 tablet 09/16/18 Unknown Rx 5-325 mg TAB] Cyclobenzaprine [Flexeril] 10 mg PO TID PRN #20 tablet 08/24/20 Unknown Rx HYDROcodone/APAP 5-325 [Guffey 1 each PO Q6HR PRN #15 tablet 08/24/20 Unknown Rx 5/325] Ibuprofen [Motrin 400 MG tab] 400 mg PO TID 5 Days #15 tablet 08/24/20 Unknown Rx ED Physical Exam - General Limitations: No Limitations General appearance: alert, in no apparent distress, other (appears comfortable) - Head Head exam: Present: atraumatic, normocephalic - Eye Eye exam: Present: normal appearance - ENT ENT exam: Present: mucous membranes moist - Neck Neck exam: Present: normal inspection, full ROM - Respiratory Respiratory exam: Present: normal lung sounds bilaterally. Absent: respiratory distress, wheezes, rales, rhonchi, stridor - Cardiovascular Cardiovascular Exam: Present: regular rate, normal rhythm, normal heart sounds. Absent: systolic murmur, diastolic murmur, rubs, gallop - GI/Abdominal GI/Abdominal exam: Present: soft, normal bowel sounds. Absent: distended, tenderness, guarding, rebound - Rectal Rectal exam: Present: deferred - Extremities Exam Extremities exam: Present: normal inspection - Back Exam Back exam: Present: full ROM, muscle spasm, paraspinal tenderness. Absent: CVA tenderness (R), CVA tenderness (L) - Neurological Exam Neurological exam: Present: alert, oriented X3 - Psychiatric Psychiatric exam: Present: normal affect, normal mood - Skin Skin exam: Present: warm, dry, intact, normal color. Absent: rash ED Course Vital Signs 08/24/20 10:48 Temperature 98.5 F Pulse Rate 78 Respiratory 17 Rate Blood Pressure 219/100 O2 Sat by Pulse 96 Oximetry ED Medical Decision Making - Radiology Data Radiology results: report reviewed Patient Name: JIMMIE FARRIS Gender: Male Date of : 1955 Referring Provider: JONNIE GRIFFIN Organization: [facility] Accession Number: [id number] Requested Date: August 24, 2020 12:20 Report Status: Final Requested Procedure: 1 Procedure Description: CT abdomen pelvis wo con Modality: CT Findings Reporting MD: Richardson Guevara Dictation Time: August 24, 2020 12:06 Electric Tripper Machine Operator: Not available Viticulturist Date: CT ABDOMEN AND PELVIS WITHOUT CONTRAST INDICATION / CLINICAL INFORMATION: left flank pain X4DAYS. TECHNIQUE: Axial CT images were obtained through the abdomen and pelvis without IV contrast. Sagittal and coronal reformatted images. All CT scans at this location are performed using CT dose reduction for ALARA by means of automated exposure control. COMPARISON: 09/15/2018 FINDINGS: LOWER CHEST: No significant abnormality. LIVER: No significant abnormality. GALLBLADDER: No significant abnormality. BILE DUCTS: No significant abnormality. PANCREAS: No significant abnormality. SPLEEN: No significant abnormality. ADRENALS: No significant abnormality. RIGHT KIDNEY and URETER: No significant abnormality. LEFT KIDNEY and URETER: There are a few punctate calyceal stones in the left kidney. No ureteral stones or hydronephrosis. No focal renal lesion. STOMACH and SMALL BOWEL: No significant abnormality. COLON: No significant abnormality. APPENDIX: Appendectomy changes are suspected. PERITONEUM: No free fluid. No free air. No fluid collection. LYMPH NODES: No significant adenopathy. AORTA and ARTERIES: Moderate to severe diffuse aortic and iliac calcifications. No aneurysm. IVC and VEINS: No significant abnormality. URINARY BLADDER: Mild diffuse trabeculation of the bladder wall is noted. No obvious bladder mass. REPRODUCTIVE ORGANS: No significant abnormality. ADDITIONAL FINDINGS: None. SKELETAL SYSTEM: Mild lumbar spondylosis. Osteonecrosis of both femoral heads is also noted without evidence of collapse. IMPRESSION: Few punctate left renal stones are identified. No ureteral stones or hydronephrosis. No acute inflammatory process is appreciated. Bilateral femoral head necrosis changes. Signer Name: Richardson Guevara Jr, MD [facility] [address] , [address] [place] [id number] [phone] F [phone] [facility] - Report exported on Aug 24, 2020 12:24:15 -0500 - Page 2 of 2 Signed: 08/24/2020 12:06 PM Workstation Name: [id number] - Medical Decision Making 1. back pain musculoskeletal back pain: CT abdomen pelvis obtained to rule out obstructing ureteral stone. No acute process seen on CT scan. Patient has notable paraspinal spasms of the lumbar core muscles. Patient does not have red flags such as fever, trauma, neurological complaint or findings. Patient received prescription for ibuprofen Guffey Flexeril. Referred to primary care physician and spine surgeon. 2. hypertensive urgency: Due to poorly controlled hypertension. No evidence of endorgan damage on clinical exam. I encouraged patient to obtain PCP. I explained that oncologist would not ultimately manage his hypertension. Does not have a primary care physician. I referred him to outpatient medicine physician. Critical care attestation.: If time is entered above; I have spent that time in minutes in the direct care of this critically ill patient, excluding procedure time. ED Disposition Clinical Impression: Musculoskeletal back pain, Hypertensive urgency Disposition: TO HOME OR SELFCARE Is pt being admited?: No Does the pt Need Aspirin: No Condition: Stable Instructions: Acute Back Pain, Adult, Hypertension, Adult, [id number] Prescriptions: Cyclobenzaprine [Flexeril] 10 mg PO TID PRN #20 tablet PRN Reason: Muscle Spasm Ibuprofen [Motrin 400 MG tab] 400 mg PO TID 5 Days #15 tablet HYDROcodone/APAP 5-325 [Guffey 5/325] 1 each PO Q6HR PRN #15 tablet PRN Reason: Pain Referrals: JONATAN TEJEDA MD [Staff Physician] - 3-5 Days DELMAR RIVERA II, MD [Staff Physician] - 3-5 Days
--- NOTE | 2020-08-24 13:10 | Cat Scan Report ---
CT ABDOMEN AND PELVIS WITHOUT CONTRAST INDICATION / CLINICAL INFORMATION: left flank pain X4DAYS. TECHNIQUE: Axial CT images were obtained through the abdomen and pelvis without IV contrast. Sagittal and carrasco l reformatted images. All CT scans at this location are performed using CT dose reduction for ALARA b y means of automated exposure control. COMPARISON: 09/15/2018 FINDINGS: LOWER CHEST: No significant abnormality. LIVER: No significant abnormality. GALLBLADDER: No significant abnormality. BILE DUCTS: No significant abnormality. PANCREAS: No significant abnormality. SPLEEN: No significant abnormality. ADRENALS: No significant abnormality. RIGHT KIDNEY and URETER: No significant abnormality. LEFT KIDNEY and URETER: There are a few punctate calyceal stones in the left kidney. No ureteral ston es or hydronephrosis. No focal renal lesion. STOMACH and SMALL BOWEL: No significant abnormality. COLON: No significant abnormality. APPENDIX: Appendectomy changes are suspected. PERITONEUM: No free fluid. No free air. No fluid collection. LYMPH NODES: No significant adenopathy. AORTA and ARTERIES: Moderate to severe diffuse aortic and iliac calcifications. No aneurysm. IVC and VEINS: No significant abnormality. URINARY BLADDER: Mild diffuse trabeculation of the bladder wall is noted. No obvious bladder mass. REPRODUCTIVE ORGANS: No significant abnormality. ADDITIONAL FINDINGS: None. SKELETAL SYSTEM: Mild lumbar spondylosis. Osteonecrosis of both femoral heads is also noted without e vidence of collapse. IMPRESSION: Few punctate left renal stones are identified. No ureteral stones or hydronephrosis. No acute inflammatory process is appreciated. Bilateral femoral head necrosis changes. Signer Name: Richardson Guevara Jr, MD Signed: 08/24/2020 1:06 PM Workstation Name: [id number]
== END 2020-08-24 13:53 | disposition home or self-care (01) ==
LOC: ED 10:07
DX: M54.6 Pain in thoracic spine (principal); I16.0 Hypertensive urgency; R10.9 Unspecified abdominal pain; K21.9 Gastro-esophageal reflux disease without esophagitis; M19.91 Primary osteoarthritis, unspecified site; J44.9 Chronic obstructive pulmonary disease, unspecified; F17.200 Nicotine dependence, unspecified, uncomplicated; Z98.890 Other specified postprocedural states; Z79.1 Long term (current) use of non-steroidal anti-inflammatories (NSAID); Z79.899 Other long term (current) drug therapy; Z88.8 Allergy status to other drugs, medicaments and biological substances
CPT/HCPCS: 74176; 96372; 99283; J1885

== ENCOUNTER 2021-02-20 09:02 | Emergency (ER) | payer MEDICARE, OTHER ==
--- NOTE | 2021-02-20 11:45 | Cat Scan Report ---
CT ABDOMEN AND PELVIS WITHOUT CONTRAST INDICATION / CLINICAL INFORMATION: Abdominal Pain. TECHNIQUE: Axial CT images were obtained through the abdomen and pelvis without IV contrast. Sagittal and carrasco l reformatted images. All CT scans at this location are performed using CT dose reduction for ALARA b y means of automated exposure control. COMPARISON: 08/24/2020 FINDINGS: LOWER CHEST: No significant abnormality. LIVER: No significant abnormality. GALLBLADDER: No significant abnormality. BILE DUCTS: No significant abnormality. PANCREAS: No significant abnormality. SPLEEN: No significant abnormality. ADRENALS: No significant abnormality. RIGHT KIDNEY and URETER: No significant abnormality. LEFT KIDNEY and URETER: Few tiny left renal stones are again noted and unchanged. No ureteral stones or hydronephrosis. STOMACH and SMALL BOWEL: No oral contrast was administered but there is suggestion of mild diffuse ga stric wall thickening which could represent a gastritis. No focal mass or ulceration. The small bowel loops are unremarkable. COLON: Mild sigmoid diverticulosis. No acute inflammation or obstruction. APPENDIX: Appendectomy changes are suspected. PERITONEUM: No free fluid. No free air. No fluid collection. LYMPH NODES: No significant adenopathy. AORTA and ARTERIES: Moderate atherosclerotic calcification without acute abnormality. IVC and VEINS: No significant abnormality. URINARY BLADDER: Trabeculation of the bladder wall is again seen. There are a few small bladder diver ticula measuring up to 1.4 cm which appear unchanged. There appears to be a punctate stone in the giuliana dder on image 122, series 2. REPRODUCTIVE ORGANS: No significant abnormality. The prostate gland is normal size measuring 4.6 cm i n diameter. ADDITIONAL FINDINGS: None. SKELETAL SYSTEM: Mild osteopenia. Bilateral femoral head necrosis is again noted. No femoral head col lapse is appreciated. IMPRESSION: No acute inflammatory process is appreciated. Nonobstructing left nephrolithiasis, stable in appearance. Tiny bladder stone. Mild gastric wall thickening is suggested which could be related to a gastritis. Mild sigmoid diverticulosis. Mild bladder diverticulosis with trabeculation. Signer Name: Richardson Guevara Jr, MD Signed: 02/20/2021 11:41 AM Workstation Name: [id number]
--- NOTE | 2021-02-20 11:57 | Emergency Department Report ---
ED Abdominal Pain HPI - General Chief Complaint: Back Pain/Injury Stated Complaint: L SIDE BACK PAIN Time Seen by Provider: 02/20/21 10:44 Source: patient Mode of arrival: Ambulatory Limitations: No Limitations - History of Present Illness Initial Comments: Patient is 65-year-old male with history of Eudora Soto syndrome, hypertension and hepatitis C. Patient presented to the ER complaining of left flank pain for the last 7 days. Patient describes his pain as sharp intermittent with no radiation. Patient denied any recent injury. He denied any chest pain or shortness of breath. No nausea or vomiting. No fever or chills. MD Complaint: abdominal pain, flank pain -: days(s) (7) Location: L flank Radiation: none Migration to: no migration Severity scale (0 -10): 8 Quality: sharp Consistency: intermittent Associated Symptoms: denies other symptoms - Related Data Home Medications Medication Instructions Recorded Confirmed Last Taken Pantoprazole [Protonix TAB] 40 mg PO DAILY 11/10/13 02/20/21 09/15/18 10:00 Verapamil HCl 240 mg PO DAILY 11/10/13 02/20/21 09/15/18 10:00 Mesalamine [Pentasa] 1,000 mg PO TID 01/09/17 02/20/21 09/14/18 22:00 Allergies Allergy/AdvReac Type Severity Reaction Status Date / Time iodine AdvReac Rash Verified 02/20/21 09:06 ED Review of Systems ROS: Stated complaint: L SIDE BACK PAIN Other details as noted in HPI Comment: All other systems reviewed and negative Constitutional: denies: chills, fever Respiratory: denies: cough, shortness of breath, SOB with exertion, SOB at rest Cardiovascular: denies: chest pain Gastrointestinal: abdominal pain. denies: nausea, vomiting, diarrhea, constipation, hematemesis, melena, hematochezia Musculoskeletal: back pain Neurological: denies: headache, weakness, numbness, paresthesias, confusion ED Past Medical Hx - Past Medical History Hx Hypertension: Yes Hx Heart Attack/AMI: No Hx Congestive Heart Failure: No Hx Diabetes: No Hx Deep Vein Thrombosis: No Hx Pulmonary Embolism: No Hx GERD: Yes Hx Liver Disease: Yes (HEP C in the past) Hx Renal Disease: No Hx Arthritis: Yes Hx Seizures: No Hx Kidney Stones: No Hx Asthma: No Hx COPD: Yes Hx Tuberculosis: No Hx Dementia: No Hx HIV: No Additional medical history: Hepatitis C; Guillian [place] Syndrome - Surgical History Hx Coronary Stent: No Hx Open Heart Surgery: No Hx Pacemaker: No Hx Internal Defibrillator: No Hx Appendectomy: No Hx Breast Surgery: No Additional Surgical History: Bleeding Ulcer 2011 - Social History Smoking Status: Current Some Day Smoker Substance Use Type: None - Medications Home Medications: Home Medications Medication Instructions Recorded Confirmed Last Taken Type Pantoprazole [Protonix TAB] 40 mg PO DAILY 11/10/13 02/20/21 09/15/18 10:00 History Verapamil HCl 240 mg PO DAILY 11/10/13 02/20/21 09/15/18 10:00 History Mesalamine [Pentasa] 1,000 mg PO TID 01/09/17 02/20/21 09/14/18 22:00 History ED Physical Exam - General Limitations: No Limitations General appearance: alert, in no apparent distress - Head Head exam: Present: atraumatic, normocephalic, normal inspection - Eye Eye exam: Present: normal appearance, PERRL - ENT ENT exam: Present: normal exam, normal orophraynx, mucous membranes moist - Neck Neck exam: Present: normal inspection, full ROM. Absent: tenderness, meningismus - Respiratory Respiratory exam: Present: normal lung sounds bilaterally - Cardiovascular Cardiovascular Exam: Present: regular rate, normal rhythm, normal heart sounds - GI/Abdominal GI/Abdominal exam: Present: soft, normal bowel sounds. Absent: distended, tenderness, guarding, rebound, rigid, organomegaly, mass, bruit, pulsatile mass, hernia - Extremities Exam Extremities exam: Present: normal inspection, full ROM, normal capillary refill. Absent: tenderness, pedal edema, joint swelling, calf tenderness - Back Exam Back exam: Present: normal inspection, full ROM, CVA tenderness (L). Absent: CVA tenderness (R) - Neurological Exam Neurological exam: Present: alert, oriented X3, CN II-XII intact, normal gait, reflexes normal - Psychiatric Psychiatric exam: Present: normal mood - Skin Skin exam: Present: warm, intact, normal color ED Course Vital Signs 02/20/21 02/20/21 02/20/21 09:04 11:18 11:26 Temperature 97.6 F Pulse Rate 94 H 98 H 52 L Respiratory 18 Rate Blood Pressure 228/105 Blood Pressure 228/105 [Left] O2 Sat by Pulse 100 Oximetry 02/20/21 12:28 Temperature Pulse Rate 52 L Respiratory 19 Rate Blood Pressure Blood Pressure 159/69 [Left] O2 Sat by Pulse 99 Oximetry ED Medical Decision Making - Lab Data Result diagrams: 02/20/21 11:25 02/20/21 11:25 - Radiology Data Radiology results: report reviewed - Medical Decision Making Patient is 65-year-old male with history of Ashok Soto syndrome, hypertension and hepatitis C. Patient presented to the ER complaining of left flank pain for the last 7 days. Patient describes his pain as sharp intermittent with no radiation. Patient denied any recent injury. He denied any chest pain or shortness of breath. No nausea or vomiting. No fever or chills. Patient found to be significantly hypertensive. Patient received labetalol 20 mg IV with significant improvement in his blood pressure. Labs reviewed and showed significant UTI. Patient received Rocephin 1 g IV. Patient also received morphine for pain. Patient stated that he is feeling much better. CT abdomen and pelvis showed multiple small kidney stones with no evidence of obstruction. Patient given prescription for C[place], Zofran and ciprofloxacin and advised to follow-up with his primary doctor and his urologist Dr. Trinh in the next 2 to 3 days and to return to the ER if he develop any new symptoms. Critical care attestation.: If time is entered above; I have spent that time in minutes in the direct care of this critically ill patient, excluding procedure time. ED Disposition Clinical Impression: Malignant hypertension, Acute urinary tract infection, Acute abdominal pain, Kidney stone Disposition: 01 HOME / SELF CARE / HOMELESS Is pt being admited?: No Condition: Stable Instructions: Hypertension (ED), Urinary Tract Infection, Adult, Kidney Stones, Hypertension, Adult Referrals: PRIMARY CARE, [Primary Care Provider] - 3-5 Days
[2021-02-20 12:06] LABS: Basophils # (Auto) 0.1 K/mm3 (0.0-0.1); Basophils % (Auto) 0.9 % (0.0-1.8); Eosinophils # (Auto) 0.3 K/mm3 (0.0-0.4); Eosinophils % (Auto) 4.8 % (0.0-4.3); Lymphocytes # (Auto) 1.5 K/mm3 (1.2-5.4); Lymphocytes % (Auto) 22.8 % (13.4-35.0); Mean Corpuscular HGB Conc 29 % (32-34); Monocytes # (Auto) 0.7 K/mm3 (0.0-0.8); Monocytes % (Auto) 10.3 % (0.0-7.3); Platelet Count 227 K/mm3 (140-440); Red Cell Distribution Width 19.7 % (13.2-15.2)
[2021-02-20] MEDS ORDERED: MORPHINE 4 MG/1 ML INJ IV ONE (12:06)
[2021-02-20] MEDS ORDERED: ONDANSETRON 4 MG/2 ML INJ IV ONE (12:08)
[2021-02-20 12:09] LABS: Hemoglobin 10.5 gm/dl (11.8-15.2); Mean Corpuscular Volume 67 fl (84-94)
[2021-02-20 12:15] LABS: Bacteria,Urine 1+ /HPF (Negative); Bilirubin,Urine NEG (Negative); Blood,Urine SM (Negative); Color,Urine Yellow (Yellow); Mucus,Urine 1+ /HPF; Protein,Urine <15 mg/dL mg/dL (Negative); Urobilinogen,Urine < 2.0 mg/dL (<2.0)
[2021-02-20 12:29] VITALS: BP 159/69
[2021-02-20 12:33] LABS: Alanine Aminotransferase 23 units/L (7-56); Albumin 4.2 g/dL (3.9-5); Blood Urea Nitrogen 16 mg/dL (9-20); Calcium 9.4 mg/dL (8.4-10.2); Hemolysis Index 3
[2021-02-20 12:53] LABS: BUN/Creatinine Ratio 23; Bilirubin,Direct < 0.2 mg/dL (0-0.2)
[2021-02-20] MEDS ORDERED: cefTRIAXone/NS 1 GM/50 ML 1 GM/50 ML BAG IV ONE (13:48)
== END 2021-02-20 14:44 | disposition home or self-care (01) ==
LOC: ED 09:02
DX: I67.4 Hypertensive encephalopathy (principal); N39.0 Urinary tract infection, site not specified; N20.0 Calculus of kidney; F17.200 Nicotine dependence, unspecified, uncomplicated; Z86.19 Personal history of other infectious and parasitic diseases; Z98.890 Other specified postprocedural states
CPT/HCPCS: 36415; 74176; 80048; 80076; 81001; 83690; 85025; 96365; 96375; 99284; J0696; J2270; J2405; J3490

== ENCOUNTER 2021-10-02 07:30 | Emergency (ER) | payer MEDICARE ==
[2021-10-02 07:43] VITALS: BP 188/94
[2021-10-02 08:20] LABS: Bilirubin,Urine Negative (Negative); Blood,Urine Negative (Negative); Color,Urine Straw (Yellow); Mucus,Urine FEW /HPF; Protein,Urine <15 mg/dL mg/dL (Negative)
[2021-10-02 08:21] LABS: Urobilinogen,Urine < 2.0 mg/dL (<2.0)
[2021-10-02 09:36] LABS: Basophils # (Auto) 0.1 K/mm3 (0.0-0.1); Basophils % (Auto) 1.2 % (0.0-1.8); Eosinophils # (Auto) 0.3 K/mm3 (0.0-0.4); Lymphocytes # (Auto) 1.2 K/mm3 (1.2-5.4); Lymphocytes % (Auto) 18.5 % (13.4-35.0); Mean Corpuscular HGB Conc 31 % (32-34); Monocytes # (Auto) 0.5 K/mm3 (0.0-0.8); Monocytes % (Auto) 7.4 % (0.0-7.3); Platelet Count 228 K/mm3 (140-440); Red Blood Count 5.77 M/mm3 (3.65-5.03)
[2021-10-02 09:37] LABS: Hematocrit 38.4 % (35.5-45.6); Hemoglobin 11.7 gm/dl (11.8-15.2); Mean Corpuscular Volume 67 fl (84-94); Red Cell Distribution Width 21.3 % (13.2-15.2)
[2021-10-02 09:54] LABS: Alanine Aminotransferase 31 units/L (7-56); Albumin 4.4 g/dL (3.9-5); BUN/Creatinine Ratio 19; Blood Urea Nitrogen 15 mg/dL (9-20); Calcium 9.9 mg/dL (8.4-10.2); Hemolysis Index 6
== END 2021-10-02 23:00 | disposition left against medical advice (07) ==
LOC: ED 07:30
DX: R10.9 Unspecified abdominal pain (principal); Z53.21 Procedure and treatment not carried out due to patient leaving prior to being seen by health care provider
CPT/HCPCS: 36415; 80053; 81001; 83690; 85025